=== PATIENT | male | born 1975 | race African-American/Black ===

== ENCOUNTER 2018-01-27 09:30 | Emergency (ER) | payer MEDICAID ==
--- NOTE | 2018-01-27 09:45 | ER Document Report ---
HPI - HPI Patient complains to provider of: headache Onset: Other - daily Onset/Duration: Gradual Pain Level: 5 Context: 42 yo male c/o chronic daily headache for years. No fever. Thinks it is his blood pressure, not taking rx anymore. down to 2/5 now bc he took some motrin. No dizziness, blurred vision, chest pain or abd. pain. No PCP. Associated Symptoms: None Exacerbated by: Denies Relieved by: Other - motrin, tylenol Similar symptoms previously: Yes Recently seen / treated by doctor: No - ROS ROS below otherwise negative: Yes Systems Reviewed and Negative: Yes All other systems reviewed and negative Past Medical History - General Information source: Patient - Social History Smoking Status: Current Every Day Smoker Frequency of alcohol use: None Drug Abuse: None Lives with: Family Family History: Reviewed & Not Pertinent - Past Medical History Cardiac Medical History: Reports: Hx Hypertension Surgical Hx: Negative Vertical Provider Document - CONSTITUTIONAL Agree With Documented VS: Yes Exam Limitations: No Limitations General Appearance: No Apparent Distress - INFECTION CONTROL TRAVEL OUTSIDE OF THE [place] IN LAST 30 DAYS: No - HEENT HEENT: Normocephalic, PERRLA. negative: Conjuctival Injection, Pharyngeal Erythema - NECK Neck: Supple - non tender - RESPIRATORY Respiratory: Breath Sounds Normal, No Respiratory Distress O2 Sat by Pulse Oximetry: 98 - CARDIOVASCULAR Cardiovascular: Regular Rate, Regular Rhythm - GI/ABDOMEN Gastrointestinal: Abdomen Soft, Abdomen Non-Tender - NEURO Level of Consciousness: Awake, Alert, Appropriate Motor/Sensory: No Motor Deficit, No Sensory Deficit - DERM Integumentary: Warm, Dry, No Rash Course - Re-evaluation Re-evalutation: 01/27/18 11:27 Headache is now 0. Bilateral blood pressures are normal at this time. Will refer the patient to family practice doctor for blood pressure evaluation. Also I will refer to neurologist for headache evaluation. - Vital Signs Vital signs: Temp Pulse Resp BP Pulse Ox 97.8 F 63 16 155/92 H 98 01/27/18 09:35 01/27/18 09:35 01/27/18 09:35 01/27/18 09:35 01/27/18 09:35 Discharge - Discharge Clinical Impression: Chronic daily headache Condition: Good Disposition: HOME, SELF-CARE Instructions: Acetaminophen, Anti-Inflammatory Medication ([facility]), Intravenous Compazine for Headaches ([facility]), Use of Diphenhydramine, Headache ([facility]), High Blood Pressure ([facility]), Toradol Injection ([facility]) Additional Instructions: See Dr. Garner on Monday for reevaluation and care You may need to start high blood pressure medication, you have mild high blood pressure See a neurologist for this chronic daily headache Return to the emergency room if symptoms worsen I Prescriptions: Ibuprofen [Motrin 800 mg Tablet] 800 mg PO Q8HP PRN #20 tablet PRN Reason: Referrals: JENNIFER GARNER MD [ACTIVE STAFF] - 01/29/18 RON JONES MD [NO LOCAL MD] - Follow up as needed LIBBY JUSTICE MD [EMERITUS] - Follow up as needed
[2018-01-27] MEDS ORDERED: PROCHLORPERAZINE EDISYLATE INJ 10 MG/2 ML VIAL IV ONE (09:57)
[2018-01-27] MEDS ORDERED: NORMAL SALINE 1000 ML 1,000 ML IV ONE (09:57)
[2018-01-27] MEDS ORDERED: DIPHENHYDRAMINE HCL 50 MG/ML VIAL IV ONE (09:58)
[2018-01-27] MEDS ORDERED: KETOROLAC TROMETHAMINE INJ/PF 30 MG/1 ML SDV IV ONE (09:58)
[2018-01-27 11:17] VITALS: BP 120/82
== END 2018-01-27 11:49 | disposition home or self-care (01) ==
LOC: EDSEX → ER 09:30
DX: R51 Headache (principal); I10 Essential (primary) hypertension; F17.200 Nicotine dependence, unspecified, uncomplicated
CPT/HCPCS: 99283; 96374; 96375; J1200; J1885; J0780; J7030

== ENCOUNTER 2018-06-01 02:54 | Emergency (ER) | payer MEDICAID ==
[2018-06-01 03:02] VITALS: BP 143/90
[2018-06-01] MEDS ORDERED: DIPHENHYDRAMINE HCL 50 MG/ML VIAL IM ONE (03:45)
[2018-06-01] MEDS ORDERED: HYDROCORTISONE 1% CREAM 28.35 GM TP ONE (03:46)
--- NOTE | 2018-06-01 03:55 | ER Document Report ---
ED Skin Rash/Insect Bite/Abscs - General Chief Complaint: Itching Stated Complaint: ITCHING Time Seen by Provider: 06/01/18 03:20 Mode of Arrival: Ambulatory Information source: Patient Notes: Patient is a 42-year-old male with chief complaint of poison demetria exposure. Patient reports that he had been weed whacking a week ago and initially was exposed to poison demetria on his legs. Patient reports that he scratched the poison demetria and scratched his genitals and now it has spread. Patient denies any other symptoms. Patient has not taken any medications for this. TRAVEL OUTSIDE OF THE [place] IN LAST 30 DAYS: No - Related Data Allergies/Adverse Reactions: No Known Allergies Allergy (Verified 06/01/18 04:31) Past Medical History - General Information source: Patient - Social History Smoking Status: Never Smoker Frequency of alcohol use: None Drug Abuse: None Family History: Reviewed & Not Pertinent - Medical History Medical History: Negative - Past Medical History Cardiac Medical History: Reports: Hx Hypertension Renal/ Medical History: Denies: Hx Peritoneal Dialysis Review of Systems - Review of Systems Constitutional: No symptoms reported EENT: No symptoms reported Cardiovascular: No symptoms reported Respiratory: No symptoms reported Gastrointestinal: No symptoms reported Genitourinary: No symptoms reported Male Genitourinary: No symptoms reported Musculoskeletal: No symptoms reported Skin: See HPI Hematologic/Lymphatic: No symptoms reported Neurological/Psychological: No symptoms reported Physical Exam - Vital signs Vitals: Temp Pulse Resp BP Pulse Ox 98.1 F 70 16 143/90 H 96 06/01/18 02:55 06/01/18 02:55 06/01/18 02:55 06/01/18 02:55 06/01/18 02:55 - Notes Notes: PHYSICAL EXAMINATION: GENERAL: Well-appearing, well-nourished and in no acute distress. HEAD: Atraumatic, normocephalic. EYES: Pupils equal round and reactive to light, extraocular movements intact, sclera anicteric, conjunctiva are normal. ENT: Nares patent, oropharynx clear without exudates. Moist mucous membranes. NECK: Normal range of motion, supple without lymphadenopathy LUNGS: Breath sounds clear to auscultation bilaterally and equal. No wheezes rales or rhonchi. HEART: Regular rate and rhythm without murmurs ABDOMEN: Soft, nontender, nondistended abdomen. No guarding, no rebound. No masses appreciated. Musculoskeletal: Normal range of motion, no pitting or edema. No cyanosis. NEUROLOGICAL: Cranial nerves grossly intact. Normal speech, normal gait. Normal sensory, motor exams PSYCH: Normal mood, normal affect. SKIN: Warm, Dry, normal turgor, scattered erythematous pruritic rash to bilateral thighs and genitals consistent with exposure to poison demetria. Course - Re-evaluation Re-evalutation: Otherwise healthy 42-year-old male with rash consistent with poison demetria exposure. Patient will be given a dose of IM Benadryl as he will not stop scratching. Patient will also be given hydrocortisone cream with directions to apply twice daily. - Vital Signs Vital signs: Temp Pulse Resp BP Pulse Ox 98.1 F 70 16 143/90 H 96 06/01/18 02:55 06/01/18 02:55 06/01/18 02:55 06/01/18 02:55 06/01/18 02:55 Discharge - Discharge Clinical Impression: Poison demetria Condition: Stable Disposition: HOME, SELF-CARE Additional Instructions: Poison Demetria Poison demetria and poison oak can cause an itchy rash. This is called contact dermatitis. It's an allergy to an oil in the plant's leaves. The oil can be spread from clothing to skin, from pets to humans, or from one spot on the body to another. Washing thoroughly with soap immediately after exposure can prevent the rash. (Clothing should be washed as well.) If the oil is not removed, an itchy rash develops a few days after the exposure. Blisters may develop. Two to three weeks may be required for healing. Generally, treatment consists of: (1) an immediate thorough washing with soap to remove the oil, (2) application of a cortisone cream, and (3) antihistamines for itching. If the reaction is particularly severe, oral cortisone medicine may be required. If there are oozing areas, these can be soaked in epsom salts or Shelton's solution. Call the doctor if the rash worsens despite treatment, or if signs of infection occur such as spreading redness, red streaks, swollen glands, swelling , or fever. Please take 1-2 tablets of Benadryl every 6 hours as needed for the itching. Do not drive while you are taking this as it may make you sleepy. Please use the hydrocortisone cream, apply a thin amount of it to the areas twice daily. Prescriptions: Hydrocortisone [Hydrocortisone 1% Cream 28.35 gm] 28.35 applic TP BID #1 tube Referrals: REMEDIOS GUERRERO MD [Primary Care Provider] - Follow up as needed
[2018-06-01] MEDS ORDERED: HYDROCORTISONE 1% OINTMENT 28.35 GM ONE (04:31)
== END 2018-06-01 04:35 | disposition home or self-care (01) ==
LOC: ER 02:54
DX: L23.7 Allergic contact dermatitis due to plants, except food (principal); I10 Essential (primary) hypertension
CPT/HCPCS: 99283; 96372; J1200; J3490